=== PATIENT | female | born 1990 | race Caucasian/White ===

== ENCOUNTER 2017-05-06 16:43 | Emergency (ER) | payer BC ==
[2017-05-06] MEDS ORDERED: TORAdol 30 mg Injection IM ONE (16:57)
--- NOTE | 2017-05-06 17:06 | ERPHSYRPT ---
- History of Present Illness Time Seen by Provider: 05/06/17 17:03 Source: patient Physician History: pain in left lower teeth, two molar and a premolar lower. recently saw dentist. pain got worse so came to ER Timing/Duration: day(s) (2-3 days) Severity: moderate Associated Symptoms: denies symptoms Allergies/Adverse Reactions: Penicillins Allergy (Intermediate, Verified 05/06/17 16:57) Rash Home Medications: Meloxicam [Mobic] 15 mg PO HS 05/06/17 [History] Methocarbamol 500 mg [Robaxin 500 MG] 500 mg PO HS 05/06/17 [History] Sertraline HCl 50 mg [Zoloft 50 mg Tablet] 50 mg PO DAILY 05/06/17 [History] - Review of Systems Constitutional: No Symptoms Eyes: No Symptoms Ears, Nose, & Throat: Mouth Swelling, Loose Teeth Respiratory: No Symptoms Cardiac: No Symptoms - Past Medical History Neurological History: No Pertinent History Cardiac History: No Pertinent History Respiratory History: No Pertinent History Endocrine Medical History: No Pertinent History Musculoskeletal History: No Pertinent History Other Medical History: NONE NOTED - Physical Exam General Appearance: no apparent distress Eye Exam: PERRL/EOMI Ears, Nose, Throat Exam: normal ENT inspection, moist mucous membranes, other ( left lower teeth decay) - Course Nursing assessment & vital signs reviewed: Yes Ordered Tests: Medication Summary Discontinued Medications Generic Name Dose Route Start Last Admin Trade Name Freq PRN Reason Stop Dose Admin Ketorolac Tromethamine 60 mg 05/06/17 16:57 Toradol 30 Mg Injection IM 05/06/17 16:58 STAT ONE - Progress Progress: unchanged Counseled pt/family regarding: diagnosis, need for follow-up (with Dentist LUIS FERNANDO) - Departure Time of Disposition: 17:06 Departure Disposition: Home Clinical Impression: Abscess of pulp of tooth Condition: Stable Critical Care Time: No Referrals: BASIL NIÑO [Primary Care Provider] - Instructions: Tooth Decay Additional Instructions: Please follow the instructions given to you. Please take your medication as prescribed if given. If symptoms recur or get worse, come back to the emergency room if you cannot reach your primary care physician, or call your primary care physician for an appointment. Again if your symptoms get worse, come back to the emergency room. Thanks for visiting emergency room, and let us take care of you. Prescriptions: Hydrocodon/Ibupr 7.5mg/200mg [Vicoprofen 7.5mg/200mg Tablet] 1 tab PO Q6H # 15 tablet
[2017-05-06] MEDS ORDERED: TORAdol 30 mg Injection ONE (17:10)
[2017-05-06 17:44] VITALS: BP 142/90; PULSE 82; O2SAT 97
== END 2017-05-06 17:43 | disposition home or self-care (01) ==
LOC: ED 16:43
DX: K04.01 Reversible pulpitis (principal)
CPT/HCPCS: 96372; 99284; J1885

== ENCOUNTER 2017-05-27 19:55 | Emergency (ER) | payer BC ==
[2017-05-27] MEDS ORDERED: Vancomycin 1GM/ Ns 250ML*** 250 ML IV ONE ×2 (20:25→20:49)
--- NOTE | 2017-05-27 20:31 | ERPHSYRPT ---
- History of Present Illness Time Seen by Provider: 05/27/17 20:17 Source: patient Exam Limitations: no limitations Patient Subjective Stated Complaint: pt states she has had dental pain since . states she has been on mult antibiotics, has had a root canal and wisdom tooth removed and pain and swelling is getting worse. Triage Nursing Assessment: pt alert and oriented, asnwers questions approp. skin pink warm and dry. pt ambulatory with steady gait ntoed. respirations nonlabored with lungs cta. swelling noted to lt lower jaw into neck. Physician History: 26-year-old white female arrives with complaint of swelling and pain in left side of her mouth since April 30, 2017 according to patient she initially had a root canal then she had a wisdom tooth removal she states that she's been having swelling and pain in the left side of her mouth she states she's been on multiple antibiotic she states she is currently on clindamycin she states she has [place] at home. She states she continues to have pain on the left side of her mouth and swelling on the left side her mouth she feels like she has some swelling on the inferior aspect of her neck right at the angle of the jaw. Patient is not having any problems breathing she is not running fever she has no vomiting no diarrhea no other complaints. Past medical history includes depression. Timing/Duration: week(s) (4 weeks) Severity: moderate Modifying Factors: Improves With: other (patient is on clindamycin and [place]) Associated Symptoms: No nausea, No vomiting, No abdominal pain, No shortness of breath, No heartburn, No diaphoresis, No cough, No chills, No chest pain, No fever, No headaches, No loss of appetite, No malaise, No syncope, No seizure, No weakness Allergies/Adverse Reactions: Penicillins Allergy (Verified 05/27/17 20:20) Rash Home Medications: Meloxicam 7.5 mg [Mobic 7.5 MG] 7.5 mg PO BIDPRN PRN 05/27/17 [History] Methocarbamol 500 mg [Robaxin 500 MG] 500 mg PO Q8H PRN PRN 05/27/17 [ History] Sertraline HCl 50 mg [Zoloft 50 mg Tablet] 50 mg PO DAILY 05/27/17 [History] Hx Tetanus, Diphtheria Vaccination/Date Given: Yes Hx Influenza Vaccination/Date Given: No Hx Pneumococcal Vaccination/Date Given: No Immunizations Up to Date: Yes - Review of Systems Constitutional: No Fever, No Chills Eyes: No Symptoms Ears, Nose, & Throat: Mouth Pain, Mouth Swelling, No Ear Pain, No Ear Discharge , No Hearing Changes, No Tinnitus, No Nose Pain, No Nose Congestion, No Nose Discharge, No Sinus Drainage, No Epistaxis, No Loose Teeth, No Throat Pain, No Throat Swelling, No Hoarse, No Painful Swallowing, No Snoring, No Stridor Respiratory: No Cough, No Dyspnea Cardiac: No Chest Pain, No Edema, No Syncope Abdominal/Gastrointestinal: No Abdominal Pain, No Nausea, No Vomiting, No Diarrhea Genitourinary Symptoms: No Dysuria Musculoskeletal: No Back Pain, No Neck Pain Skin: No Rash Neurological: No Dizziness, No Focal Weakness, No Sensory Changes Psychological: No Symptoms Endocrine: No Symptoms All Other Systems: Reviewed and Negative - Past Medical History Pertinent Past Medical History: Yes Psycho-Social History: Depression - Past Surgical History Past Surgical History: Yes Genitourinary: Other Musculoskeletal: Orthopedic Surgery Other Surgical History: surgery for kidney reflux - Social History Smoking Status: Never smoker Exposure to second hand smoke: No Drug Use: none Patient Lives Alone: No - Female History Hx Last Menstrual Period: 2 weeks ago - Nursing Vital Signs Nursing Vital Signs: Initial Vital Signs Temperature Source Oral Pulse Rate 72 Respiratory Rate 16 Blood Pressure [Right Arm] 109/60 Pain Intensity 4 - Physical Exam General Appearance: no apparent distress, alert Eye Exam: PERRL/EOMI, eyes nml inspection, other (fundi are unremarkable) Ears, Nose, Throat Exam: TMs normal, pharynx normal, moist mucous membranes, other (patient has what appears to be some c lateral mandibular region there is been extracted wisdom toot mandibular region there is moderate edema and tenderness with palpation on the lateral mandibular region airway is clear perhaps increased palpation of the abscess in the neck) Neck Exam: normal inspection, non-tender, supple, full range of motion Respiratory Exam: normal breath sounds, lungs clear, No respiratory distress Cardiovascular Exam: regular rate/rhythm, normal heart sounds, normal peripheral pulses Gastrointestinal/Abdomen Exam: soft, normal bowel sounds, No tenderness, No mass Back Exam: normal inspection, normal range of motion, No CVA tenderness, No vertebral tenderness Extremity Exam: normal inspection, normal range of motion, pelvis stable Neurologic Exam: alert, oriented x 3, cooperative, normal mood/affect, nml cerebellar function, nml station & gait, sensation nml, No motor deficits Skin Exam: normal color, warm, dry, No rash Lymphatic Exam: adenopathy SpO2 Interpretation: normal (100%) SpO2: 100 Oxygen Delivery: Room Air - Course Nursing assessment & vital signs reviewed: Yes Ordered Tests: Active Orders 24 hr Category Date Time Status Clean Catch Urine Specimen STAT Care 05/27/17 20:54 Inactive IV Insertion STAT Care 05/27/17 20:23 Active BLOOD CULTURE Stat Lab 05/27/17 20:57 Received CBC W DIFF Stat Lab 05/27/17 20:57 Completed Medication Summary Generic Name Dose Route Start Last Admin Trade Name Freq PRN Reason Stop Dose Admin Vancomycin HCl 250 mls @ 167 mls/hr 05/27/17 20:25 05/27/17 20:55 Vancomycin 1gm/ Ns 250ml IV 05/27/17 21:54 167 mls/hr STAT ONE Administration Discontinued Medications Generic Name Dose Route Start Last Admin Trade Name Freq PRN Reason Stop Dose Admin Vancomycin HCl Confirm 05/27/17 20:49 Vancomycin 1gm/ Ns 250ml Administered 05/27/17 20:50 Dose 250 mls @ ud IV .STK-MED ONE Lab/Rad Data: Laboratory Result Diagrams 05/27/17 20:57 Laboratory Results 05/27/17 Range/Units 20:57 WBC 6.9 (4.0-10.5) K/mm3 RBC 3.76 L (4.1-5.4) M/mm3 Hgb 10.1 L (12.0-16.0) gm/dl Hct 31.4 L (35-47) % MCV 83.5 (78-100) fl MCH 26.8 (26-32) pg MCHC 32.2 (32-36) g/dl RDW 14.3 H (11.5-14.0) % Plt Count 268 (150-450) K/mm3 MPV 9.3 (6-9.5) fl Gran % 65.2 (36.0-66.0) % Lymphocytes % 23.0 L (24.0-44.0) % Monocytes % 9.8 (0.0-12.0) % Eosinophils % 1.9 (0.00-5.0) % Basophils % 0.1 (0.0-0.4) % Basophils # 0.01 (0-0.4) - Progress Progress: improved Progress Note: 05/27/17 20:33 "boxed this is a 26-year-old white female arrives w initially had a she's been having pain and swelling area of swelling possible abscess on the lateral left mandible, there does appear to be some involvement of the left submandibular gland but there does not appear to be involvement of the neck and the airway is clear.Patient is already on clindamycin she states she has been placing cold packs to the area she is also on [place]. Will go ahead and give patient vancomycin 1 gram iv after obtaining blood culture and CBC. Patient appears to be stable Will release patient will need to follow-up with either her nurse practitioner or her dentist she will be advised to call tomorrow to arrange an appointment she is to continue her clindamycin as previously prescribed and place cold packs on the area. - Departure Time of Disposition: 21:32 Departure Disposition: Home Clinical Impression: Pain, dental, Dental abscess Condition: Fair Critical Care Time: No Referrals: BASIL NIÑO [Primary Care Provider] - Additional Instructions: Return home. Cold packs area 24-48 hours. Continue clindamycin, [place] as prescribed by your dentist. Follow-up with your nurse practitioner or your dentist tomorrow call for an appointment. Return for acute distress or for severe symptoms.
[2017-05-27 21:00] LABS: BASOPHIL % 0.1 % (0.0-0.4); Eosinophil % 1.9 % (0.00-5.0); Granulocytes % 65.2 % (36.0-66.0); Mean Cell Volume 83.5 fl (78-100); Mean Platelet Volume 9.3 fl (6-9.5); Monocytes % 9.8 % (0.0-12.0); Platelet Count 268 K/mm3 (150-450); Red Blood Count 3.76 M/mm3 (4.1-5.4); Red Cell Distribution Width 14.3 % (11.5-14.0); White Blood Count 6.9 K/mm3 (4.0-10.5)
[2017-05-27 21:02] LABS: Mean Corpuscular Hemoglobin 26.8 pg (26-32)
[2017-05-27 21:57] VITALS: BP 113/63; PULSE 76; O2SAT 97
== END 2017-05-27 22:40 | disposition home or self-care (01) ==
LOC: ED 19:55 → MERGE 19:55 → ED 22:40
DX: K04.7 Periapical abscess without sinus (principal); K08.89 Other specified disorders of teeth and supporting structures
CPT/HCPCS: 36000; 36415; 85025; 87040; 96365; 96366; 99284; J3370

== ENCOUNTER 2022-02-04 13:31 | Emergency (ER) | payer BC ==
[2022-02-04 13:51] VITALS: O2SAT 100
--- NOTE | 2022-02-04 14:42 | ERPHSYRPT ---
- History of Present Illness Time Seen by Provider: 02/04/22 14:40 Source: patient Exam Limitations: no limitations Patient Subjective Stated Complaint: Abnormal labs- D DIMER 796 Triage Nursing Assessment: Patient ambulated back to ED and transferred self to bed. Patient A+O X3. Patient's skin pink, warm and dry. Patient had lab work done today and was called due to d dimer being elevated. Patient's d dimer noted to be 796. Patient denies pain or discomfort or current SOB. lungs clear a/p nohemi. Physician History: Patient is 31-year-old female was seen by a nurse practitioner in the clinic on Sunday where she went to see her for worsening shortness of breath weakness tiredness for last few weeks duration. Labs were ordered which reported increased D-dimer 796 as well as hemoglobin 9.4 so the nurse practitioner called the patient and she told her to come to the emergency room for further evaluation. Patient has a Covid 6 months ago at that time patient had a pneumonia and she got antibody infusion. Associated Symptoms: shortness of breath Allergies/Adverse Reactions: Penicillins Allergy (Intermediate, Verified 02/04/22 13:42) Rash Home Medications: Meloxicam [Mobic] 15 mg PO HS 05/06/17 [History] Methocarbamol 500 mg [Robaxin 500 MG] 500 mg PO HS 05/06/17 [History] Sertraline HCl 50 mg [Zoloft 50 mg Tablet] 50 mg PO DAILY 05/06/17 [History] Meloxicam 7.5 mg [Mobic 7.5 MG] 7.5 mg PO BIDPRN PRN 05/27/17 [History] Methocarbamol 500 mg [Robaxin 500 MG] 500 mg PO Q8H PRN PRN 05/27/17 [History] Sertraline HCl 50 mg [Zoloft 50 mg Tablet] 50 mg PO DAILY 05/27/17 [History] Hx Tetanus, Diphtheria Vaccination/Date Given: No Hx Influenza Vaccination/Date Given: Yes Hx Pneumococcal Vaccination/Date Given: No Immunizations Up to Date: Yes Travel Risk - International Travel Have you traveled outside of the country in past 3 weeks: No - Coronavirus Screening Are you exhibiting any of the following symptoms?: No - Vaccine Status Have you recieved a Covid-19 vaccination: Yes Cost Manager: Moderna - Vaccination Dates Date of 2cond Vaccination (if applicable): january 2022 - Review of Systems Constitutional: No Fever, No Chills Eyes: No Symptoms Ears, Nose, & Throat: No Symptoms Respiratory: No Cough, No Dyspnea Cardiac: No Chest Pain, No Edema, No Syncope Abdominal/Gastrointestinal: No Abdominal Pain, No Nausea, No Vomiting, No Diarrhea Genitourinary Symptoms: No Dysuria Musculoskeletal: No Back Pain, No Neck Pain Skin: No Rash Neurological: No Dizziness, No Focal Weakness, No Sensory Changes Psychological: No Symptoms Endocrine: No Symptoms All Other Systems: Reviewed and Negative - Past Medical History Pertinent Past Medical History: No Neurological History: No Pertinent History Cardiac History: No Pertinent History Respiratory History: No Pertinent History Endocrine Medical History: No Pertinent History Musculoskeletal History: No Pertinent History Psycho-Social History: Depression Other Medical History: NONE NOTED - Past Surgical History Past Surgical History: Yes Genitourinary: Kidney Surgery, Other Musculoskeletal: Orthopedic Surgery Other Surgical History: surgery for kidney reflux - Social History Smoking Status: Never smoker Exposure to second hand smoke: No Drug Use: none Patient Lives Alone: No - Female History Hx Last Menstrual Period: currently Hx Now: No - Nursing Vital Signs Nursing Vital Signs: Initial Vital Signs Temperature 97.9 F 02/04/22 13:43 Pulse Rate 91 H 02/04/22 13:43 Respiratory Rate 18 02/04/22 13:43 Blood Pressure 151/83 02/04/22 13:43 O2 Sat by Pulse Oximetry 100 02/04/22 13:43 Pain Scale Pain Intensity 0 - Physical Exam General Appearance: no apparent distress, alert Eye Exam: PERRL/EOMI, eyes nml inspection Ears, Nose, Throat Exam: normal ENT inspection, TMs normal, pharynx normal, moist mucous membranes Neck Exam: normal inspection, non-tender, supple, full range of motion Respiratory Exam: normal breath sounds, lungs clear, No respiratory distress Cardiovascular Exam: regular rate/rhythm, normal heart sounds, normal peripheral pulses Gastrointestinal/Abdomen Exam: soft, normal bowel sounds, No tenderness, No mass Back Exam: normal inspection, normal range of motion, No CVA tenderness, No vertebral tenderness Extremity Exam: normal inspection, normal range of motion, pelvis stable Neurologic Exam: alert, oriented x 3, cooperative, normal mood/affect, nml c erebellar function, nml station & gait, sensation nml, No motor deficits Skin Exam: normal color, warm, dry, No rash Lymphatic Exam: No adenopathy SpO2: 100 - CT Exams Chest CT Interpretation: Tele-radiologist Report Ordered Tests: Active Orders 24 hr Category Date Time Status CHEST WITH CONTRAST [CT] Stat Exams 02/04/22 14:05 Taken - Progress Progress: improved Counseled pt/family regarding: lab results, diagnosis, need for follow-up, rad results - Departure Departure Disposition: Home Clinical Impression: Dyspnea on effort, Post-COVID chronic dyspnea, Elevated d-dimer Anemia Qualifiers: Anemia type: iron deficiency Iron deficiency 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 The patient was counseled regarding Diagnosis,Lab results, Imaging studies, need for follow up and when to return to the Emergency Room. Prescriptions given: Discharge Note I have spoken with the patient and/or caregivers. I have explained the patient's condition, diagnosis and treatment plan based on the information available to me at this time. I have answered the patient's and/or caregiver's questions and addressed any concerns. The patient and/or caregivers have as good understanding of the patient's diagnosis, condition and treatment plan as can be expected at this point. The vital signs have been stable. The patient's condition is stable and appropriate for discharge from the emergency department. The patient will pursue further outpatient evaluation with the primary care physician or other designated or consulting physician as outlined in the discharge instructions. The patient and/or caregivers are agreeable to this plan of care and follow-up instructions have been explained in detail. The patient and/or caregivers have received these instruction. The patient/and or caregivers are aware that any significant change in condition or worsening of symptoms should prompt an immediate return to this or the closest emergency department or call 911. NISHA ANDREWS CHRIS was seen on 02/04/22 n the Emergency Room. At that time you were treated for an emergent condition, during your visit Laboratory, Radiology and/or other procedures may have been ordered. It is very important that you follow-up with your Primary Care Physician BASIL NIÑO within the next 24- 48 hours to review your Emergency Room visit and the final results of testing that was ordered. Some test results such as Urine Cultures, Blood Cultures, and other cultures if ordered will not be finalized for 24-48 hours. If you do not have a Primary Care Provider please call the medical records department at [phone] ext [phone] to obtain a copy of your results or you may sign into our patient portal to obtain these results by visiting us @ [email or web address] and completing the following steps: 1. Click on the Patient Portal link 2. Click the Patient Self Enrollment Link to complete the enrollment form and entering your 3. Once the enrollment form is completed you will receive an email with a temporary ID and password at the email address you provided. 4. Next choose a user name and password. Your user name must be at least 4 characters long and your password must be at least 4 characters long. 5. Choose a security question from the list and provide your answer to the q uestion. If you already have signed into the Health Portal you may access your Health Care Information 04/06 by the following steps: 1. Login to our website @ [email or web address] 2. Enter your original user name and password. FAQS The [facility] Health Portal is an online tool that contains your Lab Results, Radiology Reports, Visit History, Discharge Instructions and Health Summary Lab and Radiology Results will not be available for 72 hours on the portal. The Portal is a secure site, passwords are encryted and URLs are re-written so they cannot be copied and pasted. You and authorized family members are the only ones who can access your Portal. Also there is a timeout feature that protects your information if you leave the Portal page open. If you have technical difficulty please use the Contact Us link on the page this will allow you to submit any questions you have regarding the Portal or you may contact the Medical Record Department at [phone] ext [phone].
[2022-02-04 15:53] VITALS: BP 148/74; PULSE 89
--- NOTE | 2022-02-04 19:54 | XRAY ---
Indication: Dyspnea on exertion. Elevated d-dimer. Multiple contiguous axial images obtained through the chest using 100 cc Isovue 370 contrast and PE protocol. Comparison: None There is adequate opacification of the pulmonary arteries to include the lobar and segmental branches. No pulmonary embolus. Heart not enlarged. Aorta is normal in course and caliber. No pathologic mediastinal/hilar lymphadenopathy. Lungs demonstrates mild bilateral dependent atelectasis. No suspicious pulmonary mass, infiltrate, or effusion. Bony thorax intact. Limited upper abdomen demonstrates fatty liver and 16.5 cm splenomegaly. Impression: 1. Negative pulmonary embolus. No acute cardiopulmonary abnormalities. 2. Incidental fatty liver and splenomegaly. Comment: Preliminary interpretation made by [facility]. No critical discrepancy.
== END 2022-02-04 15:52 | disposition home or self-care (01) ==
LOC: ED 13:31
DX: R06.00 Dyspnea, unspecified (principal); U09.9 Post COVID-19 condition, unspecified; R79.1 Abnormal coagulation profile; D50.0 Iron deficiency anemia secondary to blood loss (chronic); R53.1 Weakness; R53.83 Other fatigue; Z79.899 Other long term (current) drug therapy
CPT/HCPCS: 36000; 71260; 99284

== ENCOUNTER 2023-11-16 22:59 | Emergency (ER) | payer BC, OTHER ==
[2023-11-16 23:13] VITALS: TEMP 97.7
--- NOTE | 2023-11-16 23:30 | ERPHSYRPT ---
- History of Present Illness Time Seen by Provider: 11/16/23 23:08 Historian: patient Exam Limitations: no limitations Patient Subjective Stated Complaint: L sided chest pain x2 days that started worsening in the last hour. pt states pain radiates to behind the L shoulder and pain is worse upon palpation. Triage Nursing Assessment: pt ambulatory to bed by self, pt alert and oriented x3, skin pwd, pt c/o L sided chest pain x2 days that has worsened in the last hour. pt denies any cardiac hx, pt rating a 5/10 aching constant pain, pain is worse upon palpation to the L chest area. Physician History: For the past month pt has had shortness of air; for the past 2 days constant dull 5/10 left anterior chest pain. PT denies nausea, vomiting, abdominal pain, dysuria. Aspirin Treatment Today: unknown Allergies/Adverse Reactions: Penicillins Allergy (Intermediate, Verified 11/16/23 23:00) Rash latex Allergy (Mild, Verified 11/16/23 23:13) Rash Home Medications: PARoxetine HCL [Paxil] 40 mg PO DAILY 11/16/23 [History] Hx Tetanus, Diphtheria Vaccination/Date Given: Yes Hx Influenza Vaccination/Date Given: No Hx Pneumococcal Vaccination/Date Given: No Immunizations Up to Date: Yes Travel Risk - International Travel Have you traveled outside of the country in past 3 weeks: No - Coronavirus Screening Are you exhibiting any of the following symptoms?: No Close contact with a COVID-19 positive Pt in past 14-21 Days: No - Vaccine Status Have you recieved a Covid-19 vaccination: Yes Chronograph Operator: Moderna - Vaccination Dates Date of 2cond Vaccination (if applicable): january 2022 - Review of Systems Respiratory: Dyspnea Cardiac: Chest Pain Abdominal/Gastrointestinal: No Abdominal Pain, No Nausea, No Vomiting Genitourinary Symptoms: No Dysuria Neurological: No Headache - Past Medical History Pertinent Past Medical History: No Neurological History: No Pertinent History Cardiac History: No Pertinent History Respiratory History: No Pertinent History Endocrine Medical History: No Pertinent History Musculoskeletal History: No Pertinent History History: No Pertinent History Psycho-Social History: Depression Female Reproductive Disorders: No Pertinent History Other Medical History: NONE NOTED - Past Surgical History Past Surgical History: Yes Neuro Surgical History: No Pertinent History Cardiac: No Pertinent History Respiratory: No Pertinent History Gastrointestinal: No Pertinent History Genitourinary: Kidney Surgery, Other Musculoskeletal: No Pertinent History Female Surgical History: No Pertinent History Other Surgical History: surgery for kidney reflux, L ankle tendon repair - Social History Smoking Status: Never smoker Exposure to second hand smoke: No Drug Use: none Patient Lives Alone: No - Female History Hx Last Menstrual Period: 10/30/23 Hx Now: No - Nursing Vital Signs Nursing Vital Signs: Initial Vital Signs Temperature 97.7 F 11/16/23 23:04 Pulse Rate 91 H 11/16/23 23:04 Respiratory Rate 14 11/16/23 23:04 Blood Pressure 151/104 11/16/23 23:04 O2 Sat by Pulse Oximetry 97 11/16/23 23:04 Pain Scale Pain Intensity 5 - Physical Exam General Appearance: alert Eye Exam: PERRL/EOMI Ears, Nose, Throat Exam: TMs normal, pharynx normal Neck Exam: normal inspection Respiratory Exam: lungs clear Cardiovascular Exam: normal heart sounds Gastrointestinal/Abdomen Exam: soft, normal bowel sounds Back Exam: normal inspection Extremity Exam: No swelling Neurologic Exam: alert, cooperative Skin Exam: warm, dry SpO2 Interpretation: normal SpO2: 97 O2 Delivery: Room Air - Course Nursing assessment & vital signs reviewed: Yes EKG Interpreted by Me: RATE ([id number]), Sinus Rhythm, NORMAL AXIS, Other (QTc = 434) - CT Exams Chest CT Interpretation: Tele-radiologist Report, No PE Ordered Tests: Active Orders 24 hr Category Date Time Status Radio Intelligence Operator STAT Care 11/16/23 23:31 Active EKG-ER Only STAT Care 11/16/23 23:31 Active IV Insertion STAT Care 11/16/23 23:31 Active CHEST WITH CONTRAST [CT] Stat Exams 11/16/23 23:32 Completed AMYLASE Stat Lab 11/16/23 23:34 Completed CBC W DIFF Stat Lab 11/16/23 23:34 Completed CMP Stat Lab 11/16/23 23:34 Completed HCG QUALITATIVE, SERUM Stat Lab 11/16/23 23:37 Completed LIPASE Stat Lab 11/16/23 23:34 Completed MAGNESIUM Stat Lab 11/16/23 23:34 Completed TROPONIN Q4H Lab 11/16/23 23:34 Completed TROPONIN Q4H Lab 11/17/23 03:30 Ordered TROPONIN Q4H Lab 11/17/23 07:30 Ordered Medication Summary Generic Name Dose Route Start Last Admin Trade Name Freq PRN Reason Stop Dose Admin Sodium Chloride 1,000 mls @ 100 mls/hr 11/16/23 23:45 11/16/23 23:46 Sodium Chloride 0.9% 1000 Ml IV 12/16/23 23:44 100 mls/hr .Q10H RASHAWN Administration Discontinued Medications Generic Name Dose Route Start Last Admin Trade Name Ron PRN Reason Stop Dose Admin Aspirin 324 mg 11/16/23 23:33 11/16/23 23:47 Aspirin 81 Mg Tab.Chew PO 11/16/23 23:34 324 mg STAT ONE Administration Aspirin Confirm 11/16/23 23:42 Aspirin 81 Mg Tab.Chew Administered 11/16/23 23:43 Dose 324 mg .ROUTE .STK-MED ONE Nitroglycerin 0.4 mg 11/16/23 23:33 11/16/23 23:47 Nitroglycerin 0.4 Mg (Ed) 0.4 Mg Tab.Subl SL 11/16/23 23:34 0.4 mg STAT ONE Administration Nitroglycerin Confirm 11/16/23 23:42 Nitroglycerin 0.4 Mg (Ed) 0.4 Mg Tab.Subl Administered 11/16/23 23:43 Dose 0.4 mg SL .STK-MED ONE Lab/Rad Data: Laboratory Result Diagrams 11/16/23 23:34 11/16/23 23:34 Laboratory Results 11/16/23 11/16/23 11/16/23 Range/Units 23:37 23:34 23:34 WBC (4.0-10.5) x10^3/uL RBC (4.1-5.4) x10^6/uL Hgb (12.0-16.0) g/dL Hct (35-47) % MCV (78-100) fL MCH (26-32) pg MCHC (32-36) g/dL RDW (11.5-14.0) % Plt Count (150-450) x10^3/uL MPV (7.5-11.0) fL Gran % (36.0-66.0) % Immature Gran % (Auto) (0.00-0.4) % Nucleat RBC Rel Count (0.00-0.1) % Eos # (Auto) (0-0.5) x10^3/uL Immature Gran # (Auto) (0.00-0.03) x10^3u/L Absolute Lymphs (auto) (1.0-4.6) x10^3/uL Absolute Monos (auto) (0.0-1.3) x10^3/uL Absolute Nucleated RBC (0.00-0.01) x10^3u/L Lymphocytes % (24.0-44.0) % Monocytes % (0.0-12.0) % Eosinophils % (0.00-5.0) % Basophils % (0.0-0.4) % Absolute Granulocytes (1.4-6.9) x10^3/uL Basophils # (0-0.4) x10^3/uL Sodium 135 L (137-145) mmol/L Potassium 4.1 (3.5-5.1) mmol/L Chloride 104 (98-107) mmol/L Carbon Dioxide 20 L (22-30) mmol/L Anion Gap 14.8 (5-15) MEQ/L BUN 10 (7-17) mg/dL Creatinine 0.73 (0.52-1.04) mg/dL Estimated GFR 109.9 ML/MIN Glucose 121 H (74-106) mg/dL Calcium 8.9 (8.4-10.2) mg/dL Magnesium 2.0 (1.6-2.3) mg/dL Total Bilirubin 0.40 (0.2-1.3) mg/dL AST 27 (14-36) U/L ALT 31 (0-35) U/L Alkaline Phosphatase 100 (38-126) U/L Troponin I < 0.012 (0.000-0.034) ng/mL Serum Total Protein 7.9 (6.3-8.2) g/dL Albumin 4.1 (3.5-5.0) g/dL Amylase 60 (30-110) U/L Lipase 196 (23-300) U/L Serum HCG, Qual NEGATIVE (NEGATIVE) 11/16/23 Range/Units 23:34 WBC 9.8 (4.0-10.5) x10^3/uL RBC 3.88 L (4.1-5.4) x10^6/uL Hgb 8.6 L (12.0-16.0) g/dL Hct 29.5 L (35-47) % MCV 76.0 L (78-100) fL MCH 22.2 L (26-32) pg MCHC 29.2 L (32-36) g/dL RDW 17.9 H (11.5-14.0) % Plt Count 272 (150-450) x10^3/uL MPV 9.8 (7.5-11.0) fL Gran % 64.1 (36.0-66.0) % Immature Gran % (Auto) 0.3 (0.00-0.4) % Nucleat RBC Rel Count 0.0 (0.00-0.1) % Eos # (Auto) 0.10 (0-0.5) x10^3/uL Immature Gran # (Auto) 0.03 (0.00-0.03) x10^3u/L Absolute Lymphs (auto) 2.31 (1.0-4.6) x10^3/uL Absolute Monos (auto) 1.04 (0.0-1.3) x10^3/uL Absolute Nucleated RBC 0.00 (0.00-0.01) x10^3u/L Lymphocytes % 23.7 L (24.0-44.0) % Monocytes % 10.7 (0.0-12.0) % Eosinophils % 1.0 (0.00-5.0) % Basophils % 0.2 (0.0-0.4) % Absolute Granulocytes 6.26 (1.4-6.9) x10^3/uL Basophils # 0.02 (0-0.4) x10^3/uL Sodium (137-145) mmol/L Potassium (3.5-5.1) mmol/L Chloride (98-107) mmol/L Carbon Dioxide (22-30) mmol/L Anion Gap (5-15) MEQ/L BUN (7-17) mg/dL Creatinine (0.52-1.04) mg/dL Estimated GFR ML/MIN Glucose (74-106) mg/dL Calcium (8.4-10.2) mg/dL Magnesium (1.6-2.3) mg/dL Total Bilirubin (0.2-1.3) mg/dL AST (14-36) U/L ALT (0-35) U/L Alkaline Phosphatase (38-126) U/L Troponin I (0.000-0.034) ng/mL Serum Total Protein (6.3-8.2) g/dL Albumin (3.5-5.0) g/dL Amylase (30-110) U/L Lipase (23-300) U/L Serum HCG, Qual (NEGATIVE) - Progress Progress: improved Counseled pt/family regarding: lab results, diagnosis, rad results Medical Desision Making - Diagnostic Testing Diagnostic test were ordered, analyzed, and reviewed by me: Yes Radiological Interpretation: Teleradiologist Report - Departure Departure Disposition: Home Clinical Impression: Chest pain, Dyspnea Condition: Stable Critical Care Time: No Referrals: [facility] [Nurse Practioner] - Follow up/PCP as directed Instructions: Shortness of Breath (Dyspnea) (DC), Chest Pain (DC) Additional Instructions: Follow up with private doctor tomorrow. Forms: Work/School Release Form
[2023-11-16] MEDS ORDERED: BABY ASPIRIN 81 MG CHEW PO ONE (23:33)
[2023-11-16] MEDS ORDERED: Nitrostat 0.4 MG (ED) SL ONE ×2 (23:33→23:42)
[2023-11-16 23:37] LABS: Absolute Neutrophil Ct (ANC) 6.26 x10^3/uL (1.4-6.9); BASOPHIL % 0.2 % (0.0-0.4); Basophil (Absolute #) 0.02 x10^3/uL (0-0.4); Hematocrit 29.5 % (35-47); Hemoglobin 8.6 g/dL (12.0-16.0); IMMATURE GRAN # 0.03 x10^3u/L (0.00-0.03); IMMATURE GRAN % 0.3 % (0.00-0.4); Lymphocyte (Absolute #) 2.31 x10^3/uL (1.0-4.6); Lymphocytes % 23.7 % (24.0-44.0); Mean Corpuscular Hemoglobin 22.2 pg (26-32); Mean Corpuscular Hgb Concent. 29.2 g/dL (32-36); Mean Platelet Volume 9.8 fL (7.5-11.0); Monocyte (Absolute #) 1.04 x10^3/uL (0.0-1.3); Monocytes % 10.7 % (0.0-12.0); Neutrophil % 64.1 % (36.0-66.0); Platelet Count 272 x10^3/uL (150-450); Red Blood Count 3.88 x10^6/uL (4.1-5.4); Red Cell Distribution Width 17.9 % (11.5-14.0); White Blood Count 9.8 x10^3/uL (4.0-10.5)
[2023-11-16] MEDS ORDERED: BABY ASPIRIN 81 MG CHEW ONE (23:42)
[2023-11-16] MEDS ORDERED: Sodium Chloride 0.9% 1000 ML 1,000 ML ONE (23:42)
[2023-11-16 23:44] LABS: ALBUMIN 4.1 g/dL (3.5-5.0); ALKALINE PHOSPHATASE 100 U/L (38-126); ANION GAP 14.8 MEQ/L (5-15); BLOOD UREA NITROGEN 10 mg/dL (7-17); CHLORIDE 104 mmol/L (98-107); Calcium 8.9 mg/dL (8.4-10.2); Carbon Dioxide 20 mmol/L (22-30); Creatinine 1 0.73 mg/dL (0.52-1.04); EST GLOMERULAR FILTRATION RATE 109.9 ML/MIN; Glucose 121 mg/dL (74-106); Potassium 4.1 mmol/L (3.5-5.1); SGOT/AST 27 U/L (14-36); SGPT/ALT 31 U/L (0-35); SODIUM 135 mmol/L (137-145); Total Protein 7.9 g/dL (6.3-8.2)
[2023-11-16] MEDS ORDERED: Sodium Chloride 0.9% 1000 ML 1,000 ML IV SCH (23:45)
[2023-11-16 23:57] LABS: TROPONIN < 0.012 ng/mL (0.000-0.034)
[2023-11-17 00:05] LABS: HCG SERUM TEST NEGATIVE (NEGATIVE)
--- NOTE | 2023-11-17 01:10 | XRAY ---
CLINICAL HISTORY:shortness of air; R/O PE COMPARISON:NONE TECHNIQUE:Contiguous axial images were obtained from the neck base through the upper abdomen following intravenous administration of iodinated contrast material. Angiographic images were processed, 3D MIP images were acquired for interpretation. If IV contrast material had not been administered, the likelihood of detecting abnormalities relevant to the patient's condition would have been substantially decreased. Coronal and sagittal 3-D MIPs were likewise performed and indicated to increase the sensitivity of detectin diffuse clinically relevant pathology. CT scan was performed according to ALARA (as low as reasonable achievable). FINDINGS: Adequate contrast bolus without evidence of pulmonary embolism/ pulmonary hypertension. Minimal dependent groundglassing with interlobular septal thickening seen in basal segemnts The central airways are patent. The rest of lungs are clear. No pleural effusion. The heart, aorta, and pulmonary arteries are of normal size and configuration. There are no appreciable coronary artery and aortic atherosclerotic calcifications. No pericardial effusion is identified. No mediastinal, hilar, or axillary lymphadenopathy is noted. No suspicious lytic or sclerotic osseous lesions are identified. Diffuse fatty liver. Rest of the upper abdomen to the extent imaged is unremarkable. IMPRESSION: 1. No evidence of pulmonary embolism/pulmonary hypertension or right ventricular strain 2. No evidence of acute pulmonary disease. Electronically Signed by: Dr. Steven Medrano MD. (11/17/2023 01:05:12 EST)
[2023-11-17 01:20] VITALS: O2SAT 97
[2023-11-17 01:30] VITALS: BP 124/65; PULSE 81; RESP 23
== END 2023-11-17 01:41 | disposition home or self-care (01) ==
LOC: ED 22:59
DX: R07.9 Chest pain, unspecified (principal); R06.02 Shortness of breath; Z79.899 Other long term (current) drug therapy
CPT/HCPCS: 36000; 36415; 71260; 80053; 82150; 83690; 83735; 84484; 84703; 85025; 93005; 93041; 99284; A9270-GY